=== PATIENT | male | born 1940 | race Caucasian/White ===

== ENCOUNTER 2018-02-27 10:27 | Inpatient (IN) | payer MEDICARE ==
[~2018-02-27] VITALS: Ht 185.4 cm; Wt 124.1 kg
[2018-02-27 16:25] VITALS: BP 151/70
[2018-02-27] MEDS ORDERED: ALLO300T PO (16:56)
[2018-02-27] MEDS ORDERED: METO5TAB4 PO (16:56)
[2018-02-27] MEDS ORDERED: DILT180C2 PO (16:56)
[2018-02-27] MEDS ORDERED: INDO50CA5 PO (16:56)
[2018-02-27] MEDS ORDERED: OMEP20CA9 PO (16:56)
[2018-02-27] MEDS ORDERED: METO-247 PO (16:56)
[2018-02-27] MEDS ORDERED: BUME1TAB PO (16:56)
[2018-02-27] MEDS ORDERED: ACETAMINOPHEN 325 MG TABLET. PO PRN (17:00)
[2018-02-27] MEDS ORDERED: traMADol 50 MG TABLET PO PRN (17:00)
[2018-02-27] MEDS ORDERED: DOCUSATE SODIUM 100 MG CAPSULE. PO PRN (17:00)
[2018-02-27] MEDS ORDERED: ONDANSETRON PF 4 MG/2 ML VIAL. IV PRN (17:00)
[2018-02-27] MEDS ORDERED: MORPHINE SULFATE 2 MG/ML VIAL. IV PRN (17:00)
[2018-02-27 17:34] LABS: BASO % 0 % (0-3); EOS # 0.1 x10^3/uL (0.0-0.7); EOS % 1 % (0-3); HEMATOCRIT 37.8 % (39.0-53.0); HEMOGLOBIN 12.8 g/dL (13.0-17.5); LYMPH # 1.1 x10^3/uL (1.0-4.8); LYMPH % 7 % (24-48); MEAN CORPUSCULAR HEMOGLOBIN 30 pg (25-35); MEAN CORPUSCULAR HGB CONC 34 g/dL (31-37); MEAN CORPUSCULAR VOLUME 89 fL (79-100); MONO # 1.1 x10^3/uL (0.0-1.1); MONO % 7 % (0-9); NEUT # 12.2 x10^3uL (1.8-7.7); NEUT % 84 % (31-73); PLATELET COUNT 183 x10^3/uL (140-400); RED BLOOD COUNT 4.26 x10^6/uL (4.30-5.70); RED CELL DISTRIBUTION WIDTH 14.5 % (11.5-14.5); WHITE BLOOD COUNT 14.5 x10^3/uL (4.0-11.0)
[2018-02-27 17:43] LABS: PROTHROMBIN TIME PATIENT 15.4 SEC (11.7-14.0)
--- NOTE | 2018-02-27 17:43 | PDOC1 ---
History and Physical Date of Admission Date of Admission 02/27/18 Identification/Chief Complaint Chief Complaint abd pain, pancreatitis Source Source: Chart review, Patient History of Present Illness History of Present Illness 77 yo M, with h/o HTN, was transferred from [facility] for acute pancreatitis. pt started to have epigastric abd pain severe since last , with N/V that day, since then low po intake. He went to [facility] on 02/25 for the paiN, WBC 22 , K 2.5, CT showed diffuse pancreatitis. pt got ivf, npo till yesterday with clear liquid , then abd pain got worse. had BM 2 times yesterday. NOw pt has no abd pain after morphine, but still feel abd distended, no N/V. had subjective fever, chills. Lipase is normal. wbc better to 17. got heparin in [facility] causing hives. he admitted has GERD, BUT not takes meds daily, denies NSAIDS, denies heavy drinker. Past Medical History Cardiovascular: HTN Past Surgical History Past Surgical History knee replacement Past Surgical History: Appendectomy, Cholecystectomy Social History Smoke: No ALCOHOL: rare Drugs: None Current Medications Current Medications Current Medications Medications (Trade) Dose Ordered Sig/Qamar Start Time Stop Time Status Last Admin Dose Admin Acetaminophen (Tylenol) 650 mg PRN Q6HRS PRN 02/27/18 17:00 UNV Docusate Sodium (Colace) 100 mg PRN DAILY PRN 02/27/18 17:00 UNV Morphine Sulfate (Morphine Sulfate) 2 mg PRN Q2HR PRN 02/27/18 17:00 UNV Ondansetron HCl (Zofran) 4 mg PRN Q6HRS PRN 02/27/18 17:00 UNV Tramadol HCl (Ultram) 50 mg PRN Q6HRS PRN 02/27/18 17:00 UNV ROS Review of System CONSTITUTIONAL: No fever or chills EYES: No recent changes SKIN: No rash or itching CARDIOVASCULAR: No chest pain, syncope, palpitations, or edema RESPIRATORY: No SOB or cough GASTROINTESTINAL: No nausea, vomiting or abdominal pain NEUROLOGICAL: No headaches or weakness ENDOCRINE: No cold or heat intolerance GENITOURINARY: No urgency or frequency of urination MUSCULOSKELETAL: No back pain or joint pain LYMPHATICS: No enlarged lymph nodes PSYCHIATRIC: No anxiety or depression Physical Exam Physical Exam GEN.: No apparent distress. Alert and oriented. HEENT: Head is normocephalic, atraumatic NECK: Supple. LUNGS: Clear to auscultation. HEART: RRR, S1, S2 present. Peripheral pulses intact ABDOMEN: Soft, hypoactive bowel sounds. severe distended abd, epigastric mild tenderness. EXTREMITIES: Without any cyanosis. NEUROLOGIC: Normal speech, normal tone PSYCHIATRIC: Normal affect, normal mood. SKIN: No ulcerations Vitals Vitals Vital Signs Date Time Temp Pulse Resp B/P (MAP) Pulse Ox O2 Delivery O2 Flow Rate FiO2 02/27/18 16:25 98.8 102 16 151/70 (97) 96 Room Air 98.8 VTE Prophylaxis Ordered VTE Prophylaxis Devices: Yes VTE Pharmacological Prophylaxi: Yes Assessment/Plan Assessment/Plan abd pain with acute pancreatitis htn GERD GOUT hypokalemia, resolved morbid obesity plan: gi consult npo ivf pain control CT abd pelvis labs today CXR dvt try lovenox, benadryl GORDON Bolden MD Feb 27, 2018 17:43
[2018-02-27] MEDS ORDERED: C.DIFF MED SCREEN BY RX. MC ONE (17:45)
[2018-02-27 17:52] LABS: ALBUMIN 2.2 g/dL (3.4-5.0); CALCIUM 8.5 mg/dL (8.5-10.1); CREATININE 1.1 mg/dL (0.7-1.3); DIRECT BILIRUBIN 0.9 mg/dL (0.0-0.2); GFR 64.7; POTASSIUM 3.1 mmol/L (3.5-5.1); TOTAL BILIRUBIN 1.4 mg/dL (0.2-1.0); TOTAL PROTEIN 6.4 g/dL (6.4-8.2)
[2018-02-27] MEDS: ALLOPURINOL 300 MG TABLET. PO SCH (18:12)
[2018-02-27] MEDS: diphenhydrAMINE HCL 25 MG CAPSULE PO PRN (18:12)
[2018-02-27] MEDS: METOPROLOL SUCC 24HR ER 100 MG TAB.ER.24H. PO SCH (18:12)
[2018-02-27] MEDS: POTASSIUM CL 20MEQ D5-0.9%NACL 1,000 ML IV SCH (18:27)
[2018-02-27] MEDS ORDERED: PANTOPRAZOLE IV PUSH 40 MG VIAL. IVP SCH (18:30)
[2018-02-27] MEDS ORDERED: IOHEXOL 240 MG/ML 50ML VIAL. PO ONE (18:45)
[2018-02-27] MEDS ORDERED: IOHEXOL 300 MG/ML 100ML VIAL. IV ONE (18:45)
[2018-02-27 19:00] VITALS: BP 163/64
[2018-02-27] MEDS: ENOXAPARIN 40 MG/0.4 ML SYRINGE. SQ SCH (20:13)
[2018-02-27] MEDS: LACTOBACILLUS RHAMNOSUS GG 1 CAPSULE. PO SCH (20:14)
[2018-02-27] MEDS ORDERED: NON FORMULARY ITEM (Omeprazole 1 CAP) PO SCH (21:00)
[2018-02-27] MEDS ORDERED: POTASSIUM CHLORIDE 20 MEQ TABLET.ER. PO ONE (21:00)
[2018-02-27] MEDS ORDERED: MAGNESIUM SULFATE 2GM 50 ML IV ONE (21:00)
[2018-02-27 23:00] VITALS: BP 147/47
[2018-02-28 02:44] VITALS: BP 145/58
[2018-02-28 04:23] LABS: BASO % 0 % (0-3); EOS # 0.1 x10^3/uL (0.0-0.7); EOS % 1 % (0-3); HEMATOCRIT 36.9 % (39.0-53.0); HEMOGLOBIN 12.3 g/dL (13.0-17.5); LYMPH % 7 % (24-48); MEAN CORPUSCULAR HEMOGLOBIN 30 pg (25-35); MEAN CORPUSCULAR HGB CONC 33 g/dL (31-37); MEAN CORPUSCULAR VOLUME 89 fL (79-100); MONO # 1.2 x10^3/uL (0.0-1.1); MONO % 8 % (0-9); NEUT # 12.3 x10^3uL (1.8-7.7); NEUT % 84 % (31-73); PLATELET COUNT 195 x10^3/uL (140-400); RED BLOOD COUNT 4.14 x10^6/uL (4.30-5.70); RED CELL DISTRIBUTION WIDTH 14.7 % (11.5-14.5); WHITE BLOOD COUNT 14.6 x10^3/uL (4.0-11.0)
[2018-02-28 04:49] LABS: CALCIUM 8.4 mg/dL (8.5-10.1); CREATININE 1.2 mg/dL (0.7-1.3); GFR 58.6; POTASSIUM 4.1 mmol/L (3.5-5.1)
[2018-02-28 05:11] LABS: CHOLESTEROL/HDL RATIO 6.3
[2018-02-28 07:00] VITALS: BP 146/64
--- NOTE | 2018-02-28 07:58 | RAD ---
Portable chest, 02/27/2018: HISTORY: Epigastric pain, hypertension Comparison is made to a study from 11/20/2004. The heart size and pulmonary vascularity are normal. There is mild tortuosity of the thoracic aorta. No pulmonary infiltrate is seen. There is no evidence of pleural fluid. Mild spurring is present in the spine. IMPRESSION: No acute cardiopulmonary abnormality is detected. Electronically signed by: Rosales Craig MD (02/28/2018 7:55 AM) [facility]
--- NOTE | 2018-02-28 08:39 | RAD ---
CT of the abdomen and pelvis with contrast, 02/27/2018: HISTORY: Follow-up pancreatitis, elevated white blood cell count Multidetector CT imaging was performed following oral and IV administration of contrast. Comparison is made to an outside study from 02/25/2018. The pancreas is mildly enlarged. Streaky peripancreatic inflammation is present extending into the mesentery. This has progressed slightly. The pancreas enhances normally without evidence of necrosis. No discrete peripancreatic fluid collection is seen. The gallbladder is surgically absent. No hepatic abnormality is seen. The spleen is of normal size. There are several cysts in the left kidney with the largest of these measuring 3.6 cm. A 1.3 cm medium density cortical nodule arising from the lower pole the right kidney is again identified. It demonstrates an internal CT number of approximately 45 Hounsfield units, similar to that seen on the outside noncontrast study. This is probably a complicated cyst. A solid mass cannot be entirely excluded. Several small intrarenal calculi are present on the left. There is no evidence of renal obstruction. The ureters are unremarkable. There is mild aortoiliac calcific plaquing. No abdominal or pelvic adenopathy is seen. The bowel loops are not dilated. No free air or significant free fluid is evident in the abdomen or pelvis. Moderate multilevel degenerative changes are present in the spine. IMPRESSION: 1. Acute pancreatitis with slight interval worsening of the peripancreatic inflammation. 2. Left renal cysts and nonobstructing intrarenal calculi. 3. Medium density right renal nodule which is probably a complicated cyst. Sonographic evaluation is suggested. PQRS Compliance Statement: One or more of the following individualized dose reduction techniques were utilized for this examination: 1. Automated exposure control 2. Adjustment of the mA and/or kV according to patient size 3. Use of iterative reconstruction technique Electronically signed by: Rosales Craig MD (02/28/2018 8:36 AM) [facility]
[2018-02-28] MEDS: METOPROLOL SUCC 24HR ER 100 MG TAB.ER.24H. PO SCH (08:43)
[2018-02-28] MEDS: LACTOBACILLUS RHAMNOSUS GG 1 CAPSULE. PO SCH ×2 (08:44→21:29)
[2018-02-28] MEDS: fentaNYL PF VIAL 100 MCG/2 ML VIAL IV PRN ×3 (08:45→22:58)
[2018-02-28] MEDS: PANTOPRAZOLE IV PUSH 40 MG VIAL. IVP SCH (08:46)
[2018-02-28] MEDS: POTASSIUM CL 20MEQ D5-0.9%NACL 1,000 ML IV SCH ×3 (09:04→21:24)
--- NOTE | 2018-02-28 09:06 | PDOC2 ---
GI CONSULT Reason For Consult: acute pancreatitis HPI: HPI: 77 y/o male sent to [facility] from [facility] yesterday. Awoke at 1:00 a.m. last () w/ n/v and abd distention, then later developed LUQ pain. Pain/bloating caused some SOA a few times. No recurrent n/v and distention is better. Has had continued abd pain, but he say it's better this morning. Last took pain meds en route to [facility], and also felt better after stooling this morning - he says stool was "black like jam." Tolerating sips of water w/o increased pain. No h/o pancreatitis. S/p cholecystectomy - he says for sepsis/pseudomonas. Consumes a 12 pack of beer every 2-4 weeks. Afebrile, mild tachycardia last evening (none this morning). Leukocytosis and hypokalemia are better. Lipase and LFTs are normal except bili 1.4 (direct 0.9) . Hgb is 12.3 (12.8 yesterday) w/ normal BUN. Lipids and Ca++ okay. On interval CT (yesterday): progressive peripancreatic inflammation w/o necrosis or fluid collection. Also noted left renal cysts w/ nonobstructing intrarenal calculi and right renal nodule. On IV atbx. H/o GERD/heartburn - takes omeprazole after eating dinner one monthly or less. No dysphagia. Typically no issues w/ diarrhea or constipation. Denies hematochezia. No weight loss. EGD (for GERD) in 12/2011: Grade 1 esophagitis, gastritis, normal duodenum Tandem colonoscopy (for h/o colon polyps): Grade 1 internal hemorrhoids, otherwise normal. No liver history. H/o gout on indomethacin QD. PMH: PMH: HTN, GERD, gout, OA, hemorrhoids, cholecystectomy, appendectomy, vasectomy, cataract removal, sinus surgery, bilateral knee replacements FH: Family History: No pertinent hx (denies GI cancers, pancreatits) Social History: Smoke: Quit ALCOHOL: occassional (12 pack of beer every 2-4 weeks) Drugs: None ROS: GEN: +chills HEENT: Denies blurred vision, sore throat CV: Denies chest pain RESP: +SOA GI: Per HPI : Denies hematuria, dysuria ENDO: Denies weight changes NEURO: Denies confusion, dizziness MSK: +gout SKIN: Denies jaundice, pruritus Vitals: Vitals: Vital Signs Date Time Temp Pulse Resp B/P (MAP) Pulse Ox O2 Delivery O2 Flow Rate FiO2 02/28/18 08:43 75 146/64 02/28/18 07:00 98.1 18 97 Room Air 98.1 Labs: Labs: Laboratory Tests Test 02/27/18 17:20 02/27/18 17:30 02/28/18 03:15 White Blood Count 14.5 x10^3/uL (4.0-11.0) 14.6 x10^3/uL (4.0-11.0) Red Blood Count 4.26 x10^6/uL (4.30-5.70) 4.14 x10^6/uL (4.30-5.70) Hemoglobin 12.8 g/dL (13.0-17.5) 12.3 g/dL (13.0-17.5) Hematocrit 37.8 % (39.0-53.0) 36.9 % (39.0-53.0) Mean Corpuscular Volume 89 fL (79-100) 89 fL (79-100) Mean Corpuscular Hemoglobin 30 pg (25-35) 30 pg (25-35) Mean Corpuscular Hemoglobin Concent 34 g/dL (31-37) 33 g/dL (31-37) Red Cell Distribution Width 14.5 % (11.5-14.5) 14.7 % (11.5-14.5) Platelet Count 183 x10^3/uL (140-400) 195 x10^3/uL (140-400) Neutrophils (%) (Auto) 84 % (31-73) 84 % (31-73) Lymphocytes (%) (Auto) 7 % (24-48) 7 % (24-48) Monocytes (%) (Auto) 7 % (0-9) 8 % (0-9) Eosinophils (%) (Auto) 1 % (0-3) 1 % (0-3) Basophils (%) (Auto) 0 % (0-3) 0 % (0-3) Neutrophils # (Auto) 12.2 x10^3uL (1.8-7.7) 12.3 x10^3uL (1.8-7.7) Lymphocytes # (Auto) 1.1 x10^3/uL (1.0-4.8) 1.0 x10^3/uL (1.0-4.8) Monocytes # (Auto) 1.1 x10^3/uL (0.0-1.1) 1.2 x10^3/uL (0.0-1.1) Eosinophils # (Auto) 0.1 x10^3/uL (0.0-0.7) 0.1 x10^3/uL (0.0-0.7) Basophils # (Auto) 0.0 x10^3/uL (0.0-0.2) 0.0 x10^3/uL (0.0-0.2) Prothrombin Time 15.4 SEC (11.7-14.0) Prothromb Time International Ratio 1.3 (0.8-1.1) Sodium Level 130 mmol/L (136-145) 130 mmol/L (136-145) Potassium Level 3.1 mmol/L (3.5-5.1) 4.1 mmol/L (3.5-5.1) Chloride Level 98 mmol/L (98-107) 100 mmol/L (98-107) Carbon Dioxide Level 26 mmol/L (21-32) 23 mmol/L (21-32) Anion Gap 6 (6-14) 7 (6-14) Blood Urea Nitrogen 16 mg/dL (8-26) 17 mg/dL (8-26) Creatinine 1.1 mg/dL (0.7-1.3) 1.2 mg/dL (0.7-1.3) Estimated GFR (Cockcroft-Gault) 64.7 58.6 Glucose Level 86 mg/dL (70-99) 239 mg/dL (70-99) Calcium Level 8.5 mg/dL (8.5-10.1) 8.4 mg/dL (8.5-10.1) Total Bilirubin 1.4 mg/dL (0.2-1.0) Direct Bilirubin 0.9 mg/dL (0.0-0.2) Aspartate Amino Transf (AST/SGOT) 25 U/L (15-37) Alanine Aminotransferase (ALT/SGPT) 29 U/L (16-63) Alkaline Phosphatase 99 U/L (46-116) Total Protein 6.4 g/dL (6.4-8.2) Albumin 2.2 g/dL (3.4-5.0) Lipase 150 U/L (73-393) 169 U/L (73-393) Magnesium Level 1.4 mg/dL (1.8-2.4) Triglycerides Level 64 mg/dL (0-150) Cholesterol Level 88 mg/dL (0-200) LDL Cholesterol, Calculated 61 mg/dL (0-100) VLDL Cholesterol, Calculated 13 mg/dL (0-40) Non-HDL Cholesterol Calculated 74 mg/dL (0-129) HDL Cholesterol 14 mg/dL (40-60) Cholesterol/HDL Ratio 6.3 Allergies: Coded Allergies: amoxicillin (Verified Allergy, Unknown, 02/27/18) heparin (Verified Allergy, Unknown, 02/27/18) HIVES lisinopril (Verified Allergy, Unknown, 02/27/18) piperacillin (Verified Allergy, Unknown, 02/27/18) tazobactam (Verified Allergy, Unknown, 02/27/18) Medications: Current Medications Medications (Trade) Dose Ordered Sig/Qamar Route PRN Reason Start Time Stop Time Status Last Admin Dose Admin Allopurinol (Zyloprim) 300 mg DAILY PO 02/27/18 18:30 02/27/18 18:12 Metoprolol Succinate (Toprol Xl) 100 mg DAILY PO 02/27/18 18:30 02/28/18 08:43 Diltiazem HCl (Cardizem 24hr Cd) 180 mg DAILY PO 02/27/18 18:30 02/28/18 08:42 Potassium Chloride/Dextrose/ Sod Cl 1,000 ml @ 100 mls/hr Q10H IV 02/27/18 18:00 02/28/18 09:04 Metronidazole 100 ml @ 100 mls/hr Q12HR IV 02/27/18 21:00 02/28/18 08:45 Fentanyl Citrate (Fentanyl 2ml Vial) 50 mcg PRN Q2HR PRN IV PAIN MODERATE 02/27/18 17:30 02/28/18 08:45 Enoxaparin Sodium (Lovenox 40mg Syringe) 40 mg QHS SQ 8/22/18 21:00 02/27/18 20:13 Diphenhydramine HCl (Benadryl) 25 mg PRN Q6HRS PRN PO ITCHING 02/27/18 17:45 02/27/18 18:12 Pantoprazole Sodium (PROTONIX VIAL for IV PUSH) 40 mg DAILYAC IVP 02/28/18 07:30 02/28/18 08:46 Lactobacillus Rhamnosus (Culturelle) 1 cap BID PO 02/27/18 21:00 02/28/18 08:44 Iohexol (Omnipaque 300 Mg/ml) 75 ml 1X ONCE IV 02/27/18 18:45 02/27/18 18:54 DC 02/27/18 18:45 Iohexol (Omnipaque 240 Mg/ml) 30 ml 1X ONCE PO 02/27/18 18:45 02/27/18 18:54 DC 02/27/18 18:45 Potassium Chloride (Klor-Con) 40 meq 1X ONCE PO 02/27/18 21:00 02/27/18 21:01 DC 02/27/18 21:09 Magnesium Sulfate 50 ml @ 25 mls/hr 1X ONCE IV 02/27/18 21:00 02/27/18 22:59 DC 02/27/18 21:14 Imaging: Imaging: CXR 02/27/18 IMPRESSION: No acute cardiopulmonary abnormality is detected. CT A/P 02/27/18 The pancreas is mildly enlarged. Streaky peripancreatic inflammation is present extending into the mesentery. This has progressed slightly. The pancreas enhances normally without evidence of necrosis. No discrete peripancreatic fluid collection is seen. The gallbladder is surgically absent. No hepatic abnormality is seen. The spleen is of normal size. There are several cysts in the left kidney with the largest of these measuring 3.6 cm. A 1.3 cm medium density cortical nodule arising from the lower pole the right kidney is again identified. It demonstrates an internal CT number of approximately 45 Hounsfield units, similar to that seen on the outside noncontrast study. This is probably a complicated cyst. A solid mass cannot be entirely excluded. Several small intrarenal calculi are present on the left. There is no evidence of renal obstruction. The ureters are unremarkable. There is mild aortoiliac calcific plaquing. No abdominal or pelvic adenopathy is seen. The bowel loops are not dilated. No free air or significant free fluid is evident in the abdomen or pelvis. Moderate multilevel degenerative changes are present in the spine. IMPRESSION: 1. Acute pancreatitis with slight interval worsening of the peripancreatic inflammation. 2. Left renal cysts and nonobstructing intrarenal calculi. 3. Medium density right renal nodule which is probably a complicated cyst. Sonographic evaluation is suggested. PE: GEN: NAD HEENT: Atraumatic, PERRL LUNGS: CTAB HEART: RRR ABD: quiet, soft with perhaps mild distention, he points to LUQ region which is currently not tender EXTREMITY: No edema SKIN: No rashes, no jaundice NEURO/PSYCH: A & O 3 OTHER: soft dark brown stool in toilet A/P: A/P: Pancreatitis -interval CT w/ progressive peripancreatic inflammation -distention/pain, n/v better -WBC better GERD -seems undertreated w/ PPI PRN every month or so + daily NSAID for gout -EGD in 2012 w/ Grade 1 esophagitis and gastritis CRC screen - UTD -normal except hemorrhoids in 2012 -- Pancreatitis - unclear etiology. He thinks he's better this morning. Tolerating sips of water - may need PPN/TPN if still slow to improve. Agree w/ PPI - change to PO when able. Other per Dr. Guillen. JAIDA BUTCHER Feb 28, 2018 09:06
[2018-02-28 11:00] VITALS: BP 151/63
--- NOTE | 2018-02-28 11:03 | PDOC ---
PROGRESS NOTES Chief Complaint Chief Complaint 77 yo M, with h/o HTN, was transferred from [facility] for acute pancreatitis. pt started to have epigastric abd pain severe since last , with N/V that day, History of Present Illness History of Present Illness Assessment/Plan Assessment/Plan abd pain with acute pancreatitis Acute pancreatitis with slight interval worsening of the peripancreatic inflammation. htn GERD GOUT hypokalemia, resolved morbid obesity HYPERGLYCEMIA plan: A1C ACCUCHECKS gi consult npo ivf pain control CT abd pelvis REVIEWED labs IN AM CXR NO ACUTE PROCESS dvt PROPHY lovenox, benadryl prn Vitals Vitals Vital Signs Date Time Temp Pulse Resp B/P (MAP) Pulse Ox O2 Delivery O2 Flow Rate FiO2 02/28/18 08:43 75 146/64 02/28/18 08:00 Room Air 02/28/18 07:00 98.1 18 97 98.1 Physical Exam Physical Exam Physical Exam Physical Exam GEN.: MILD apparent distress. Alert and oriented. HEENT: Head is normocephalic, atraumatic NECK: Supple. LUNGS: Clear to auscultation. HEART: RRR, S1, S2 present. Peripheral pulses intact ABDOMEN: Soft, hypoactive bowel sounds. distended abd, epigastric mild tenderness. EXTREMITIES: Without any cyanosis. NEUROLOGIC: Normal speech, normal tone PSYCHIATRIC: Normal affect, normal mood. SKIN: No ulcerations General: Alert, Oriented X3, Cooperative, mild distress Heart: Regular rate, No murmurs Lungs: Clear Extremities: No clubbing, No cyanosis, No edema Labs LABS REASON: previous ct showed pancreatitis, lipase normal, still high wbc PROCEDURE: CT ABD PELV W/ORAL&IV CONTRAST CT of the abdomen and pelvis with contrast, 02/27/2018: HISTORY: Follow-up pancreatitis, elevated white blood cell count Multidetector CT imaging was performed following oral and IV administration of contrast. Comparison is made to an outside study from 02/25/2018. The pancreas is mildly enlarged. Streaky peripancreatic inflammation is present extending into the mesentery. This has progressed slightly. The pancreas enhances normally without evidence of necrosis. No discrete peripancreatic fluid collection is seen. The gallbladder is surgically absent. No hepatic abnormality is seen. The spleen is of normal size. There are several cysts in the left kidney with the largest of these measuring 3.6 cm. A 1.3 cm medium density cortical nodule arising from the lower pole the right kidney is again identified. It demonstrates an internal CT number of approximately 45 Hounsfield units, similar to that seen on the outside noncontrast study. This is probably a complicated cyst. A solid mass cannot be entirely excluded. Several small intrarenal calculi are present on the left. There is no evidence of renal obstruction. The ureters are unremarkable. There is mild aortoiliac calcific plaquing. No abdominal or pelvic adenopathy is seen. The bowel loops are not dilated. No free air or significant free fluid is evident in the abdomen or pelvis. Moderate multilevel degenerative changes are present in the spine. 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 50-69% stenosis of the right ICA. 2. Left renal cysts and nonobstructing intrarenal calculi. 3. Medium density right renal nodule which is probably a complicated cyst. Sonographic evaluation is suggested. Laboratory Tests Test 02/27/18 17:20 02/27/18 17:30 02/28/18 03:15 White Blood Count 14.5 x10^3/uL (4.0-11.0) 14.6 x10^3/uL (4.0-11.0) Red Blood Count 4.26 x10^6/uL (4.30-5.70) 4.14 x10^6/uL (4.30-5.70) Hemoglobin 12.8 g/dL (13.0-17.5) 12.3 g/dL (13.0-17.5) Hematocrit 37.8 % (39.0-53.0) 36.9 % (39.0-53.0) Mean Corpuscular Volume 89 fL (79-100) 89 fL (79-100) Mean Corpuscular Hemoglobin 30 pg (25-35) 30 pg (25-35) Mean Corpuscular Hemoglobin Concent 34 g/dL (31-37) 33 g/dL (31-37) Red Cell Distribution Width 14.5 % (11.5-14.5) 14.7 % (11.5-14.5) Platelet Count 183 x10^3/uL (140-400) 195 x10^3/uL (140-400) Neutrophils (%) (Auto) 84 % (31-73) 84 % (31-73) Lymphocytes (%) (Auto) 7 % (24-48) 7 % (24-48) Monocytes (%) (Auto) 7 % (0-9) 8 % (0-9) Eosinophils (%) (Auto) 1 % (0-3) 1 % (0-3) Basophils (%) (Auto) 0 % (0-3) 0 % (0-3) Neutrophils # (Auto) 12.2 x10^3uL (1.8-7.7) 12.3 x10^3uL (1.8-7.7) Lymphocytes # (Auto) 1.1 x10^3/uL (1.0-4.8) 1.0 x10^3/uL (1.0-4.8) Monocytes # (Auto) 1.1 x10^3/uL (0.0-1.1) 1.2 x10^3/uL (0.0-1.1) Eosinophils # (Auto) 0.1 x10^3/uL (0.0-0.7) 0.1 x10^3/uL (0.0-0.7) Basophils # (Auto) 0.0 x10^3/uL (0.0-0.2) 0.0 x10^3/uL (0.0-0.2) Prothrombin Time 15.4 SEC (11.7-14.0) Prothromb Time International Ratio 1.3 (0.8-1.1) Sodium Level 130 mmol/L (136-145) 130 mmol/L (136-145) Potassium Level 3.1 mmol/L (3.5-5.1) 4.1 mmol/L (3.5-5.1) Chloride Level 98 mmol/L (98-107) 100 mmol/L (98-107) Carbon Dioxide Level 26 mmol/L (21-32) 23 mmol/L (21-32) Anion Gap 6 (6-14) 7 (6-14) Blood Urea Nitrogen 16 mg/dL (8-26) 17 mg/dL (8-26) Creatinine 1.1 mg/dL (0.7-1.3) 1.2 mg/dL (0.7-1.3) Estimated GFR (Cockcroft-Gault) 64.7 58.6 Glucose Level 86 mg/dL (70-99) 239 mg/dL (70-99) Calcium Level 8.5 mg/dL (8.5-10.1) 8.4 mg/dL (8.5-10.1) Total Bilirubin 1.4 mg/dL (0.2-1.0) Direct Bilirubin 0.9 mg/dL (0.0-0.2) Aspartate Amino Transf (AST/SGOT) 25 U/L (15-37) Alanine Aminotransferase (ALT/SGPT) 29 U/L (16-63) Alkaline Phosphatase 99 U/L (46-116) Total Protein 6.4 g/dL (6.4-8.2) Albumin 2.2 g/dL (3.4-5.0) Lipase 150 U/L (73-393) 169 U/L (73-393) Magnesium Level 1.4 mg/dL (1.8-2.4) Triglycerides Level 64 mg/dL (0-150) Cholesterol Level 88 mg/dL (0-200) LDL Cholesterol, Calculated 61 mg/dL (0-100) VLDL Cholesterol, Calculated 13 mg/dL (0-40) Non-HDL Cholesterol Calculated 74 mg/dL (0-129) HDL Cholesterol 14 mg/dL (40-60) Cholesterol/HDL Ratio 6.3 Comment Review of Relevant I have reviewed the following items dc (where applicable) has been applied. Labs Laboratory Tests Test 02/27/18 17:20 02/27/18 17:30 02/28/18 03:15 White Blood Count 14.5 x10^3/uL (4.0-11.0) 14.6 x10^3/uL (4.0-11.0) Red Blood Count 4.26 x10^6/uL (4.30-5.70) 4.14 x10^6/uL (4.30-5.70) Hemoglobin 12.8 g/dL (13.0-17.5) 12.3 g/dL (13.0-17.5) Hematocrit 37.8 % (39.0-53.0) 36.9 % (39.0-53.0) Mean Corpuscular Volume 89 fL (79-100) 89 fL (79-100) Mean Corpuscular Hemoglobin 30 pg (25-35) 30 pg (25-35) Mean Corpuscular Hemoglobin Concent 34 g/dL (31-37) 33 g/dL (31-37) Red Cell Distribution Width 14.5 % (11.5-14.5) 14.7 % (11.5-14.5) Platelet Count 183 x10^3/uL (140-400) 195 x10^3/uL (140-400) Neutrophils (%) (Auto) 84 % (31-73) 84 % (31-73) Lymphocytes (%) (Auto) 7 % (24-48) 7 % (24-48) Monocytes (%) (Auto) 7 % (0-9) 8 % (0-9) Eosinophils (%) (Auto) 1 % (0-3) 1 % (0-3) Basophils (%) (Auto) 0 % (0-3) 0 % (0-3) Neutrophils # (Auto) 12.2 x10^3uL (1.8-7.7) 12.3 x10^3uL (1.8-7.7) Lymphocytes # (Auto) 1.1 x10^3/uL (1.0-4.8) 1.0 x10^3/uL (1.0-4.8) Monocytes # (Auto) 1.1 x10^3/uL (0.0-1.1) 1.2 x10^3/uL (0.0-1.1) Eosinophils # (Auto) 0.1 x10^3/uL (0.0-0.7) 0.1 x10^3/uL (0.0-0.7) Basophils # (Auto) 0.0 x10^3/uL (0.0-0.2) 0.0 x10^3/uL (0.0-0.2) Prothrombin Time 15.4 SEC (11.7-14.0) Prothromb Time International Ratio 1.3 (0.8-1.1) Sodium Level 130 mmol/L (136-145) 130 mmol/L (136-145) Potassium Level 3.1 mmol/L (3.5-5.1) 4.1 mmol/L (3.5-5.1) Chloride Level 98 mmol/L (98-107) 100 mmol/L (98-107) Carbon Dioxide Level 26 mmol/L (21-32) 23 mmol/L (21-32) Anion Gap 6 (6-14) 7 (6-14) Blood Urea Nitrogen 16 mg/dL (8-26) 17 mg/dL (8-26) Creatinine 1.1 mg/dL (0.7-1.3) 1.2 mg/dL (0.7-1.3) Estimated GFR (Cockcroft-Gault) 64.7 58.6 Glucose Level 86 mg/dL (70-99) 239 mg/dL (70-99) Calcium Level 8.5 mg/dL (8.5-10.1) 8.4 mg/dL (8.5-10.1) Total Bilirubin 1.4 mg/dL (0.2-1.0) Direct Bilirubin 0.9 mg/dL (0.0-0.2) Aspartate Amino Transf (AST/SGOT) 25 U/L (15-37) Alanine Aminotransferase (ALT/SGPT) 29 U/L (16-63) Alkaline Phosphatase 99 U/L (46-116) Total Protein 6.4 g/dL (6.4-8.2) Albumin 2.2 g/dL (3.4-5.0) Lipase 150 U/L (73-393) 169 U/L (73-393) Magnesium Level 1.4 mg/dL (1.8-2.4) Triglycerides Level 64 mg/dL (0-150) Cholesterol Level 88 mg/dL (0-200) LDL Cholesterol, Calculated 61 mg/dL (0-100) VLDL Cholesterol, Calculated 13 mg/dL (0-40) Non-HDL Cholesterol Calculated 74 mg/dL (0-129) HDL Cholesterol 14 mg/dL (40-60) Cholesterol/HDL Ratio 6.3 Laboratory Tests Test 02/27/18 17:20 02/27/18 17:30 02/28/18 03:15 White Blood Count 14.5 x10^3/uL (4.0-11.0) 14.6 x10^3/uL (4.0-11.0) Red Blood Count 4.26 x10^6/uL (4.30-5.70) 4.14 x10^6/uL (4.30-5.70) Hemoglobin 12.8 g/dL (13.0-17.5) 12.3 g/dL (13.0-17.5) Hematocrit 37.8 % (39.0-53.0) 36.9 % (39.0-53.0) Mean Corpuscular Volume 89 fL (79-100) 89 fL (79-100) Mean Corpuscular Hemoglobin 30 pg (25-35) 30 pg (25-35) Mean Corpuscular Hemoglobin Concent 34 g/dL (31-37) 33 g/dL (31-37) Red Cell Distribution Width 14.5 % (11.5-14.5) 14.7 % (11.5-14.5) Platelet Count 183 x10^3/uL (140-400) 195 x10^3/uL (140-400) Neutrophils (%) (Auto) 84 % (31-73) 84 % (31-73) Lymphocytes (%) (Auto) 7 % (24-48) 7 % (24-48) Monocytes (%) (Auto) 7 % (0-9) 8 % (0-9) Eosinophils (%) (Auto) 1 % (0-3) 1 % (0-3) Basophils (%) (Auto) 0 % (0-3) 0 % (0-3) Neutrophils # (Auto) 12.2 x10^3uL (1.8-7.7) 12.3 x10^3uL (1.8-7.7) Lymphocytes # (Auto) 1.1 x10^3/uL (1.0-4.8) 1.0 x10^3/uL (1.0-4.8) Monocytes # (Auto) 1.1 x10^3/uL (0.0-1.1) 1.2 x10^3/uL (0.0-1.1) Eosinophils # (Auto) 0.1 x10^3/uL (0.0-0.7) 0.1 x10^3/uL (0.0-0.7) Basophils # (Auto) 0.0 x10^3/uL (0.0-0.2) 0.0 x10^3/uL (0.0-0.2) Prothrombin Time 15.4 SEC (11.7-14.0) Prothromb Time International Ratio 1.3 (0.8-1.1) Sodium Level 130 mmol/L (136-145) 130 mmol/L (136-145) Potassium Level 3.1 mmol/L (3.5-5.1) 4.1 mmol/L (3.5-5.1) Chloride Level 98 mmol/L (98-107) 100 mmol/L (98-107) Carbon Dioxide Level 26 mmol/L (21-32) 23 mmol/L (21-32) Anion Gap 6 (6-14) 7 (6-14) Blood Urea Nitrogen 16 mg/dL (8-26) 17 mg/dL (8-26) Creatinine 1.1 mg/dL (0.7-1.3) 1.2 mg/dL (0.7-1.3) Estimated GFR (Cockcroft-Gault) 64.7 58.6 Glucose Level 86 mg/dL (70-99) 239 mg/dL (70-99) Calcium Level 8.5 mg/dL (8.5-10.1) 8.4 mg/dL (8.5-10.1) Total Bilirubin 1.4 mg/dL (0.2-1.0) Direct Bilirubin 0.9 mg/dL (0.0-0.2) Aspartate Amino Transf (AST/SGOT) 25 U/L (15-37) Alanine Aminotransferase (ALT/SGPT) 29 U/L (16-63) Alkaline Phosphatase 99 U/L (46-116) Total Protein 6.4 g/dL (6.4-8.2) Albumin 2.2 g/dL (3.4-5.0) Lipase 150 U/L (73-393) 169 U/L (73-393) Magnesium Level 1.4 mg/dL (1.8-2.4) Triglycerides Level 64 mg/dL (0-150) Cholesterol Level 88 mg/dL (0-200) LDL Cholesterol, Calculated 61 mg/dL (0-100) VLDL Cholesterol, Calculated 13 mg/dL (0-40) Non-HDL Cholesterol Calculated 74 mg/dL (0-129) HDL Cholesterol 14 mg/dL (40-60) Cholesterol/HDL Ratio 6.3 Medications Current Medications Acetaminophen (Tylenol) 650 mg PRN Q6HRS PRN PO FEVER/HEADACHE; Start 02/27/18 at 17:00 Ondansetron HCl (Zofran) 4 mg PRN Q6HRS PRN IV NAUSEA/VOMITING 1ST CHOICE; Start 02/27/18 at 17:00 Morphine Sulfate (Morphine Sulfate) 2 mg PRN Q2HR PRN IV MODERATE TO SEVERE PAIN; Start 02/27/18 at 17:00 Tramadol HCl (Ultram) 50 mg PRN Q6HRS PRN PO MILD TO MODERATE PAIN; Start 02/27 at 17:00 Docusate Sodium (Colace) 100 mg PRN DAILY PRN PO CONSTIPATION; Start 02/27/18 at 17:00 Allopurinol (Zyloprim) 300 mg DAILY PO Last administered on 02/27/18 18:12; Start 02/27/18 at 18:30 Metoprolol Succinate (Toprol Xl) 100 mg DAILY PO Last administered on 08:43; Start 02/27/18 at 18:30 Diltiazem HCl (Cardizem 24hr Cd) 180 mg DAILY PO Last administered on 08:42; Start 02/27/18 at 18:30 Non-Formulary Medication (Omeprazole ) 1 cap BID PO ; Start 02/27/18 at 21:00; Status UNV Potassium Chloride/Dextrose/ Sod Cl 1,000 ml @ 100 mls/hr Q10H IV Last administered on 02/28/18at 09:04; Start 02/27/18 at 18:00 Levofloxacin/ Dextrose 100 ml @ 100 mls/hr Q24H IV ; Start 02/28/18 at 11:00 Metronidazole 100 ml @ 100 mls/hr Q12HR IV Last administered on 02/28/18at 08: 45; Start 02/27/18 at 21:00 Fentanyl Citrate (Fentanyl 2ml Vial) 50 mcg PRN Q2HR PRN IV PAIN MODERATE Last administered on 02/28/18 08:45; Start 02/27/18 at 17:30 Pantoprazole Sodium (PROTONIX VIAL for IV PUSH) 40 mg DAILYAC IVP ; Start at 18:30; Stop 02/27/18 at 18:30; Status DC Enoxaparin Sodium (Lovenox 40mg Syringe) 40 mg QHS SQ Last administered on 02/27at 20:13; Start 02/27/18 at 21:00 Diphenhydramine HCl (Benadryl) 25 mg PRN Q6HRS PRN PO ITCHING Last administered on 02/27/18at 18:12; Start 02/27/18 at 17:45 Pharmacy Consult (C.diff Med Screen By Rx) 1 each 1X ONCE [facility] ; Start 02/27/18 at 17:45; Stop 02/27/18 at 17:51; Status DC Pantoprazole Sodium (PROTONIX VIAL for IV PUSH) 40 mg DAILYAC IVP Last administered on 02/28/18at 08:46; Start 02/28/18 at 07:30 Lactobacillus Rhamnosus (Culturelle) 1 cap BID PO Last administered on at 08:44; Start 02/27/18 at 21:00 Iohexol (Omnipaque 300 Mg/ml) 75 ml 1X ONCE IV Last administered on 02/27/18at 18:45; Start 02/27/18 at 18:45; Stop 02/27/18 at 18:54; Status DC Iohexol (Omnipaque 240 Mg/ml) 30 ml 1X ONCE PO Last administered on 02/27/18at 18:45; Start 02/27/18 at 18:45; Stop 02/27/18 at 18:54; Status DC Potassium Chloride (Klor-Con) 40 meq 1X ONCE PO Last administered on at 21:09; Start 02/27/18 at 21:00; Stop 02/27/18 at 21:01; Status DC Magnesium Sulfate 50 ml @ 25 mls/hr 1X ONCE IV Last administered on 02/27/18at 21:14; Start 02/27/18 at 21:00; Stop 02/27/18 at 22:59; Status DC Active Scripts Active Reported Omeprazole 20 Mg Capsule.dr 1 Cap PO BID Metoprolol Succinate ( Xl ) (Metoprolol Succinate) 100 Mg Tab.er.24h 1 Tab PO DAILY Metolazone 5 Mg Tablet 5 Mg PO DAILY Indomethacin 50 Mg Capsule 1 Cap PO BID Cardizem Cd (Diltiazem Hcl) 180 Mg Cap.er.24h 1 Cap PO DAILY Bumetanide 1 Mg Tablet 1 Tab PO DAILY Allopurinol 300 Mg Tablet 1 Tab PO DAILY Vitals/I & O Vital Sign - Last 24 Hours 02/27/18 02/27/18 02/27/18 8/22/18 16:25 16:50 18:12 18:12 Temp 98.8 98.8 Pulse 102 102 102 Resp 16 B/P (MAP) 151/70 (97) 151/70 151/70 Pulse Ox 96 O2 Delivery Room Air Room Air 02/27/18 02/27/18 02/27/18 02/28/18 19:00 20:00 23:00 02:44 Temp 97.5 97.9 98.1 97.5 97.9 98.1 Pulse 102 87 74 Resp 18 18 18 B/P (MAP) 163/64 (97) 147/47 (80) 145/58 (87) Pulse Ox 97 95 96 O2 Delivery Room Air Room Air Room Air Room Air 02/28/18 02/28/18 02/28/18 02/28/18 07:00 08:00 08:42 08:43 Temp 98.1 98.1 Pulse 75 75 75 Resp 18 B/P (MAP) 146/64 (91) 146/64 146/64 Pulse Ox 97 O2 Delivery Room Air Room Air Intake and Output 02/27/18 02/27/18 02/28/18 15:00 23:00 07:00 Intake Total 200 ml 300 ml Balance 200 ml 300 ml MAGDALENA GUPTA MD Feb 28, 2018 11:03
[2018-02-28] MEDS: diphenhydrAMINE HCL 25 MG CAPSULE PO PRN ×2 (11:55→18:21)
[2018-02-28] MEDS: ALLOPURINOL 300 MG TABLET. PO SCH (13:30)
[2018-02-28 15:00] VITALS: BP 139/57
[2018-02-28 19:00] VITALS: BP 145/52
[2018-02-28] MEDS: ENOXAPARIN 40 MG/0.4 ML SYRINGE. SQ SCH (21:30)
[2018-02-28] MEDS: SIMETHICONE 80 MG TAB.CHEW PO PRN (21:45)
[2018-02-28 23:00] VITALS: BP 126/56
[2018-03-01 03:00] VITALS: BP 138/56
[2018-03-01 05:18] LABS: HEMOGLOBIN A1C 6.1 % (4.8-5.6)
[2018-03-01 07:00] VITALS: BP 155/66
[2018-03-01] MEDS ORDERED: oxyCODONE/APAP 5/325 1 TAB TABLET PO PRN (08:45)
[2018-03-01] MEDS: LACTOBACILLUS RHAMNOSUS GG 1 CAPSULE. PO SCH ×2 (08:53→21:16)
[2018-03-01] MEDS: METOPROLOL SUCC 24HR ER 100 MG TAB.ER.24H. PO SCH (08:53)
[2018-03-01] MEDS: PANTOPRAZOLE IV PUSH 40 MG VIAL. IVP SCH (08:55)
[2018-03-01] MEDS ORDERED: INDOMETHACIN PO SCH (09:00)
--- NOTE | 2018-03-01 09:13 | PDOC2 ---
CONCEPCIÓN ASHLEY APRN 03/01/18 0913: UROLOGY CONSULT Date of Consult Date of Consult DATE: 03/01/18 TIME: 09:08 Reason for Consult Reason for Consult: Renal nodule, appears to be complicated cyst. Identification/Chief Complaint Chief Complaint Renal nodule, appears to be complicated cyst. Source Source: Caregiver, Chart review, Patient History of Present Illness Reason for Visit: Pt is a 77 year old male who went to to [facility] on 02/25 for the abd pain, nausea and vomiting and was transferred here with acute pancreatitis. Today he is feeling much better with no flank or abd pain. Also denies nausea and vomiting , hematuria, LUTS symptoms or history of enlarged prostate, prostate cancer or bladder problems. He admits to getting yearly prostate exams and bloodwork done by his PCP, Dr. Pepe, but cannot remember what the most recent PSA number was. He denies history of kidney problems, cancer or stones. He had an Ultrasound at [place] a few days ago, but is not sure if it was of his kidneys. Past Medical History Cardiovascular: HTN Renal/: No pertinent hx Past Surgical History Past Surgical History: Appendectomy, Cholecystectomy Social History Quit ALCOHOL: occassional (12 pack of beer every 2-4 weeks) Drugs: None Current Medications Current Medications Current Medications Bumetanide (Bumex) 1 mg DAILY PO ; Start 03/01/18 at 09:30 Levofloxacin/ Dextrose 100 ml @ 100 mls/hr Q24H IV Last administered on at 11:56; Start 02/28/18 at 11:00 Metolazone (Zaroxolyn) 5 mg DAILY PO ; Start 03/01/18 at 09:30 Non-Formulary Medication (Indomethacin ) 1 cap BID PO ; Start 03/01/18 at 09:00 ; Stop 03/01/18 at 09:00; Status DC Oxycodone/ Acetaminophen (Percocet 5/325) 1 tab PRN Q4HRS PRN PO SEVERE PAIN; Start 03/01/18 at 08:45 Simethicone (Gas-X) 80 mg PRN Q6HRS PRN PO GAS / BLOATING Last administered on 02/28/18at 21:45; Start 02/28/18 at 21:45 Allergies Allergies: Coded Allergies: amoxicillin (Verified Allergy, Intermediate, 03/01/18) heparin (Verified Allergy, Intermediate, 03/01/18) HIVES lisinopril (Verified Allergy, Intermediate, 03/01/18) piperacillin (Verified Allergy, Intermediate, 03/01/18) tazobactam (Verified Allergy, Intermediate, 03/01/18) ROS Review Of Systems: CONSTITUTIONAL: No fever or chills EYES: No recent changes SKIN: No rash or itching CARDIOVASCULAR: No chest pain, syncope, palpitations, or edema RESPIRATORY: No SOB or cough GASTROINTESTINAL: No nausea, vomiting or abdominal pain NEUROLOGICAL: No headaches or weakness ENDOCRINE: No cold or heat intolerance GENITOURINARY: No urgency or frequency of urination MUSCULOSKELETAL: No back pain or joint pain LYMPHATICS: No enlarged lymph nodes PSYCHIATRIC: No anxiety or depression Physical Exam Physical Exam: General: Pleasant, no acute distress, well groomed Eyes: conjunctiva anicteric, eyes full range of motion ENT: moist oral mucosa, normal dentition Neck: Trachea midline, no masses Respiratory: unlabored breathing, not using accessory muscles Abdomen: nontender, obese Pelvic: Refused Psych: normal mood, affect. Alert and oriented x 3. Vitals VITALS Vital Signs Date Time Temp Pulse Resp B/P (MAP) Pulse Ox O2 Delivery O2 Flow Rate FiO2 03/01/18 08:54 20 95 Room Air 03/01/18 08:53 82 155/66 03/01/18 07:00 97.7 97.7 Labs Labs Laboratory Tests Test 02/27/18 17:20 02/27/18 17:30 02/28/18 03:15 02/28/18 16:37 White Blood Count 14.5 x10^3/uL (4.0-11.0) 14.6 x10^3/uL (4.0-11.0) Red Blood Count 4.26 x10^6/uL (4.30-5.70) 4.14 x10^6/uL (4.30-5.70) Hemoglobin 12.8 g/dL (13.0-17.5) 12.3 g/dL (13.0-17.5) Hematocrit 37.8 % (39.0-53.0) 36.9 % (39.0-53.0) Mean Corpuscular Volume 89 fL (79-100) 89 fL (79-100) Mean Corpuscular Hemoglobin 30 pg (25-35) 30 pg (25-35) Mean Corpuscular Hemoglobin Concent 34 g/dL (31-37) 33 g/dL (31-37) Red Cell Distribution Width 14.5 % (11.5-14.5) 14.7 % (11.5-14.5) Platelet Count 183 x10^3/uL (140-400) 195 x10^3/uL (140-400) Neutrophils (%) (Auto) 84 % (31-73) 84 % (31-73) Lymphocytes (%) (Auto) 7 % (24-48) 7 % (24-48) Monocytes (%) (Auto) 7 % (0-9) 8 % (0-9) Eosinophils (%) (Auto) 1 % (0-3) 1 % (0-3) Basophils (%) (Auto) 0 % (0-3) 0 % (0-3) Neutrophils # (Auto) 12.2 x10^3uL (1.8-7.7) 12.3 x10^3uL (1.8-7.7) Lymphocytes # (Auto) 1.1 x10^3/uL (1.0-4.8) 1.0 x10^3/uL (1.0-4.8) Monocytes # (Auto) 1.1 x10^3/uL (0.0-1.1) 1.2 x10^3/uL (0.0-1.1) Eosinophils # (Auto) 0.1 x10^3/uL (0.0-0.7) 0.1 x10^3/uL (0.0-0.7) Basophils # (Auto) 0.0 x10^3/uL (0.0-0.2) 0.0 x10^3/uL (0.0-0.2) Prothrombin Time 15.4 SEC (11.7-14.0) Prothromb Time International Ratio 1.3 (0.8-1.1) Sodium Level 130 mmol/L (136-145) 130 mmol/L (136-145) Potassium Level 3.1 mmol/L (3.5-5.1) 4.1 mmol/L (3.5-5.1) Chloride Level 98 mmol/L (98-107) 100 mmol/L (98-107) Carbon Dioxide Level 26 mmol/L (21-32) 23 mmol/L (21-32) Anion Gap 6 (6-14) 7 (6-14) Blood Urea Nitrogen 16 mg/dL (8-26) 17 mg/dL (8-26) Creatinine 1.1 mg/dL (0.7-1.3) 1.2 mg/dL (0.7-1.3) Estimated GFR (Cockcroft-Gault) 64.7 58.6 Glucose Level 86 mg/dL (70-99) 239 mg/dL (70-99) Calcium Level 8.5 mg/dL (8.5-10.1) 8.4 mg/dL (8.5-10.1) Total Bilirubin 1.4 mg/dL (0.2-1.0) Direct Bilirubin 0.9 mg/dL (0.0-0.2) Aspartate Amino Transf (AST/SGOT) 25 U/L (15-37) Alanine Aminotransferase (ALT/SGPT) 29 U/L (16-63) Alkaline Phosphatase 99 U/L (46-116) Total Protein 6.4 g/dL (6.4-8.2) Albumin 2.2 g/dL (3.4-5.0) Lipase 150 U/L (73-393) 169 U/L (73-393) Magnesium Level 1.4 mg/dL (1.8-2.4) Hemoglobin A1c 6.1 % (4.8-5.6) Triglycerides Level 64 mg/dL (0-150) Cholesterol Level 88 mg/dL (0-200) LDL Cholesterol, Calculated 61 mg/dL (0-100) VLDL Cholesterol, Calculated 13 mg/dL (0-40) Non-HDL Cholesterol Calculated 74 mg/dL (0-129) HDL Cholesterol 14 mg/dL (40-60) Cholesterol/HDL Ratio 6.3 Glucose (Fingerstick) 123 mg/dL (70-99) Test 02/28/18 20:51 03/01/18 07:38 Glucose (Fingerstick) 137 mg/dL (70-99) 170 mg/dL (70-99) Laboratory Tests Test 02/28/18 16:37 02/28/18 20:51 03/01/18 07:38 Glucose (Fingerstick) 123 mg/dL (70-99) 137 mg/dL (70-99) 170 mg/dL (70-99) Images Images CT ABD/ PELVIS IMPRESSION: 1. Acute pancreatitis with slight interval worsening of the peripancreatic inflammation. 2. Left renal cysts and nonobstructing intrarenal calculi. 3. Medium density right renal nodule which is probably a complicated cyst. Sonographic evaluation is suggested. Assessment/Plan Assessment/Plan Complicated cyst on CT with no known history of kidney cancer-Will get Renal US to further evaluate Pelvic Exam/ERA-Refused, stating he recently had one by his PCP. No LUTS or urinary symptoms Dr. Long, supervising to round on patient tomorrow. ALYSON LONG MD 03/02/18 1202: UROLOGY CONSULT Assessment/Plan Assessment/Plan Patient was discharged prior to my exam. Records and images reviewed. Incidental finding of bilateral cystic renal masses. Left appear simple. 1.5 cm right is likely a hyperdense cyst as there is no contrast enhancement (per radiologist). Will follow with 6 mo clinic visit and repeat renal ultrasound. CONCEPCIÓN ASHLEY APRN Mar 01, 2018 09:13 ALYSON LONG MD Mar 02, 2018 12:02
--- NOTE | 2018-03-01 09:56 | PDOC ---
PROGRESS NOTES Chief Complaint Chief Complaint No pancreatitis, or at least has resolved-lipase now normal Hyponatremia in the background of Bumex use at home Obesity, BMI 35 Complicated renal cyst Diabetes type 2 with hemoglobin A1c 6.1 Abdominal pain, with black stool-transient, seems to have resolved-was taking indomethacin as home meds History of Present Illness History of Present Illness Is in the shower Then I did attempt to see today, was dressing up, wanted me to come back Lipase now normal Blood sugars 170s WBC 14 Potassium 4.1, on K containing IVF Plan: Urology consulted for the complicated renal cysts-await their rounds Stop K containing IVF as potassium is already 4.1 I did reconcile home meds including Bumex, but I did hold off on indomethacin given reports of transient black stool on H and P. Vitals Vitals Vital Signs Date Time Temp Pulse Resp B/P (MAP) Pulse Ox O2 Delivery O2 Flow Rate FiO2 03/01/18 08:54 20 95 Room Air 03/01/18 08:53 82 155/66 03/01/18 07:00 97.7 97.7 Physical Exam Physical Exam Physical Exam Physical Exam GEN.: MILD apparent distress. Alert and oriented. HEENT: Head is normocephalic, atraumatic NECK: Supple. LUNGS: Clear to auscultation. HEART: RRR, S1, S2 present. Peripheral pulses intact ABDOMEN: Soft, hypoactive bowel sounds. distended abd, epigastric mild tenderness. EXTREMITIES: Without any cyanosis. NEUROLOGIC: Normal speech, normal tone PSYCHIATRIC: Normal affect, normal mood. SKIN: No ulcerations General: Alert, Oriented X3, Cooperative, mild distress Heart: Regular rate, No murmurs Lungs: Clear Extremities: No clubbing, No cyanosis, No edema Labs LABS Laboratory Tests Test 02/28/18 16:37 02/28/18 20:51 03/01/18 07:38 Glucose (Fingerstick) 123 mg/dL (70-99) 137 mg/dL (70-99) 170 mg/dL (70-99) Review of Systems Review of Systems A 14 point ROS was completed with the following noted as positive: Other systems reviewed and negative. \CONSTITUTIONAL: No fever or chills EYES: No recent changes SKIN: No rash or itching CARDIOVASCULAR: No chest pain, syncope, palpitations, or edema RESPIRATORY: No SOB or cough GASTROINTESTINAL: No nausea, vomiting or abdominal pain NEUROLOGICAL: No headaches or weakness ENDOCRINE: No cold or heat intolerance GENITOURINARY: No urgency or frequency of urination MUSCULOSKELETAL: No back pain or joint pain LYMPHATICS: No enlarged lymph nodes PSYCHIATRIC: No anxiety or depression Comment Review of Relevant I have reviewed the following items dc (where applicable) has been applied. Labs Laboratory Tests Test 02/27/18 17:20 02/27/18 17:30 02/28/18 03:15 02/28/18 16:37 White Blood Count 14.5 x10^3/uL (4.0-11.0) 14.6 x10^3/uL (4.0-11.0) Red Blood Count 4.26 x10^6/uL (4.30-5.70) 4.14 x10^6/uL (4.30-5.70) Hemoglobin 12.8 g/dL (13.0-17.5) 12.3 g/dL (13.0-17.5) Hematocrit 37.8 % (39.0-53.0) 36.9 % (39.0-53.0) Mean Corpuscular Volume 89 fL (79-100) 89 fL (79-100) Mean Corpuscular Hemoglobin 30 pg (25-35) 30 pg (25-35) Mean Corpuscular Hemoglobin Concent 34 g/dL (31-37) 33 g/dL (31-37) Red Cell Distribution Width 14.5 % (11.5-14.5) 14.7 % (11.5-14.5) Platelet Count 183 x10^3/uL (140-400) 195 x10^3/uL (140-400) Neutrophils (%) (Auto) 84 % (31-73) 84 % (31-73) Lymphocytes (%) (Auto) 7 % (24-48) 7 % (24-48) Monocytes (%) (Auto) 7 % (0-9) 8 % (0-9) Eosinophils (%) (Auto) 1 % (0-3) 1 % (0-3) Basophils (%) (Auto) 0 % (0-3) 0 % (0-3) Neutrophils # (Auto) 12.2 x10^3uL (1.8-7.7) 12.3 x10^3uL (1.8-7.7) Lymphocytes # (Auto) 1.1 x10^3/uL (1.0-4.8) 1.0 x10^3/uL (1.0-4.8) Monocytes # (Auto) 1.1 x10^3/uL (0.0-1.1) 1.2 x10^3/uL (0.0-1.1) Eosinophils # (Auto) 0.1 x10^3/uL (0.0-0.7) 0.1 x10^3/uL (0.0-0.7) Basophils # (Auto) 0.0 x10^3/uL (0.0-0.2) 0.0 x10^3/uL (0.0-0.2) Prothrombin Time 15.4 SEC (11.7-14.0) Prothromb Time International Ratio 1.3 (0.8-1.1) Sodium Level 130 mmol/L (136-145) 130 mmol/L (136-145) Potassium Level 3.1 mmol/L (3.5-5.1) 4.1 mmol/L (3.5-5.1) Chloride Level 98 mmol/L (98-107) 100 mmol/L (98-107) Carbon Dioxide Level 26 mmol/L (21-32) 23 mmol/L (21-32) Anion Gap 6 (6-14) 7 (6-14) Blood Urea Nitrogen 16 mg/dL (8-26) 17 mg/dL (8-26) Creatinine 1.1 mg/dL (0.7-1.3) 1.2 mg/dL (0.7-1.3) Estimated GFR (Cockcroft-Gault) 64.7 58.6 Glucose Level 86 mg/dL (70-99) 239 mg/dL (70-99) Calcium Level 8.5 mg/dL (8.5-10.1) 8.4 mg/dL (8.5-10.1) Total Bilirubin 1.4 mg/dL (0.2-1.0) Direct Bilirubin 0.9 mg/dL (0.0-0.2) Aspartate Amino Transf (AST/SGOT) 25 U/L (15-37) Alanine Aminotransferase (ALT/SGPT) 29 U/L (16-63) Alkaline Phosphatase 99 U/L (46-116) Total Protein 6.4 g/dL (6.4-8.2) Albumin 2.2 g/dL (3.4-5.0) Lipase 150 U/L (73-393) 169 U/L (73-393) Magnesium Level 1.4 mg/dL (1.8-2.4) Hemoglobin A1c 6.1 % (4.8-5.6) Triglycerides Level 64 mg/dL (0-150) Cholesterol Level 88 mg/dL (0-200) LDL Cholesterol, Calculated 61 mg/dL (0-100) VLDL Cholesterol, Calculated 13 mg/dL (0-40) Non-HDL Cholesterol Calculated 74 mg/dL (0-129) HDL Cholesterol 14 mg/dL (40-60) Cholesterol/HDL Ratio 6.3 Glucose (Fingerstick) 123 mg/dL (70-99) Test 02/28/18 20:51 03/01/18 07:38 Glucose (Fingerstick) 137 mg/dL (70-99) 170 mg/dL (70-99) Laboratory Tests Test 02/28/18 16:37 02/28/18 20:51 03/01/18 07:38 Glucose (Fingerstick) 123 mg/dL (70-99) 137 mg/dL (70-99) 170 mg/dL (70-99) Medications Current Medications Acetaminophen (Tylenol) 650 mg PRN Q6HRS PRN PO FEVER/HEADACHE; Start 02/27/18 at 17:00 Ondansetron HCl (Zofran) 4 mg PRN Q6HRS PRN IV NAUSEA/VOMITING 1ST CHOICE; Start 02/27/18 at 17:00 Morphine Sulfate (Morphine Sulfate) 2 mg PRN Q2HR PRN IV MODERATE TO SEVERE PAIN; Start 02/27/18 at 17:00 Tramadol HCl (Ultram) 50 mg PRN Q6HRS PRN PO MILD TO MODERATE PAIN Last administered on 03/01/18at 08:54; Start 02/27/18 at 17:00 Docusate Sodium (Colace) 100 mg PRN DAILY PRN PO CONSTIPATION; Start 02/27/18 at 17:00 Allopurinol (Zyloprim) 300 mg DAILY PO Last administered on 02/28/18at 13:30; Start 02/27/18 at 18:30; Stop 02/28/18 at 14:58; Status DC Metoprolol Succinate (Toprol Xl) 100 mg DAILY PO Last administered on 08:53; Start 02/27/18 at 18:30 Diltiazem HCl (Cardizem 24hr Cd) 180 mg DAILY PO Last administered on 08:53; Start 02/27/18 at 18:30 Non-Formulary Medication (Omeprazole ) 1 cap BID PO ; Start 02/27/18 at 21:00; Status UNV Potassium Chloride/Dextrose/ Sod Cl 1,000 ml @ 100 mls/hr Q10H IV Last administered on 02/28/18 21:24; Start 02/27/18 at 18:00; Stop 03/01/18 at 08:43 ; Status DC Levofloxacin/ Dextrose 100 ml @ 100 mls/hr Q24H IV Last administered on 11:56; Start 02/28/18 at 11:00 Metronidazole 100 ml @ 100 mls/hr Q12HR IV Last administered on 03/01/18 08: 49; Start 02/27/18 at 21:00 Fentanyl Citrate (Fentanyl 2ml Vial) 50 mcg PRN Q2HR PRN IV PAIN MODERATE Last administered on 02/28/18at 22:58; Start 02/27/18 at 17:30 Pantoprazole Sodium (PROTONIX VIAL for IV PUSH) 40 mg DAILYAC IVP ; Start at 18:30; Stop 02/27/18 at 18:30; Status DC Enoxaparin Sodium (Lovenox 40mg Syringe) 40 mg QHS SQ Last administered on 02/28at 21:30; Start 02/27/18 at 21:00 Diphenhydramine HCl (Benadryl) 25 mg PRN Q6HRS PRN PO ITCHING Last administered on 02/28/18at 18:21; Start 02/27/18 at 17:45 Pharmacy Consult (C.diff Med Screen By Rx) 1 each 1X ONCE [facility] ; Start 02/27/18 at 17:45; Stop 02/27/18 at 17:51; Status DC Pantoprazole Sodium (PROTONIX VIAL for IV PUSH) 40 mg DAILYAC IVP Last administered on 03/01/18at 08:55; Start 02/28/18 at 07:30 Lactobacillus Rhamnosus (Culturelle) 1 cap BID PO Last administered on at 08:53; Start 02/27/18 at 21:00 Iohexol (Omnipaque 300 Mg/ml) 75 ml 1X ONCE IV Last administered on 02/27/18at 18:45; Start 02/27/18 at 18:45; Stop 02/27/18 at 18:54; Status DC Iohexol (Omnipaque 240 Mg/ml) 30 ml 1X ONCE PO Last administered on 02/27/18at 18:45; Start 02/27/18 at 18:45; Stop 02/27/18 at 18:54; Status DC Potassium Chloride (Klor-Con) 40 meq 1X ONCE PO Last administered on at 21:09; Start 02/27/18 at 21:00; Stop 02/27/18 at 21:01; Status DC Magnesium Sulfate 50 ml @ 25 mls/hr 1X ONCE IV Last administered on 02/27/18at 21:14; Start 02/27/18 at 21:00; Stop 02/27/18 at 22:59; Status DC Simethicone (Gas-X) 80 mg PRN Q6HRS PRN PO GAS / BLOATING Last administered on 02/28/18at 21:45; Start 02/28/18 at 21:45 Oxycodone/ Acetaminophen (Percocet 5/325) 1 tab PRN Q4HRS PRN PO SEVERE PAIN; Start 03/01/18 at 08:45 Bumetanide (Bumex) 1 mg DAILY PO ; Start 03/01/18 at 09:30 Non-Formulary Medication (Indomethacin ) 1 cap BID PO ; Start 03/01/18 at 09:00 ; Stop 03/01/18 at 09:00; Status DC Metolazone (Zaroxolyn) 5 mg DAILY PO ; Start 03/01/18 at 09:30 Active Scripts Active Reported Omeprazole 20 Mg Capsule.dr 1 Cap PO BID Metoprolol Succinate ( Xl ) (Metoprolol Succinate) 100 Mg Tab.er.24h 1 Tab PO DAILY Metolazone 5 Mg Tablet 5 Mg PO DAILY Indomethacin 50 Mg Capsule 1 Cap PO BID Cardizem Cd (Diltiazem Hcl) 180 Mg Cap.er.24h 1 Cap PO DAILY Bumetanide 1 Mg Tablet 1 Tab PO DAILY Allopurinol 300 Mg Tablet 1 Tab PO DAILY Vitals/I & O Vital Sign - Last 24 Hours 02/28/18 02/28/18 02/28/18 02/28/18 11:00 15:00 19:00 20:00 Temp 98.3 97.4 98.1 98.3 97.4 98.1 Pulse 73 67 72 Resp 18 18 18 B/P (MAP) 151/63 (92) 139/57 (84) 145/52 (83) Pulse Ox 93 95 94 O2 Delivery Room Air Room Air Room Air Room Air 02/28/18 02/28/18 02/28/18 03/01/18 22:58 23:00 23:28 03:00 Temp 98.1 98.0 98.1 98.0 Pulse 71 69 Resp 20 18 B/P (MAP) 126/56 (79) 138/56 (83) Pulse Ox 91 93 O2 Delivery Room Air Room Air Room Air Room Air 03/01/18 03/01/18 03/01/18 03/01/18 07:00 08:53 08:53 08:54 Temp 97.7 97.7 Pulse 82 82 82 Resp 18 20 B/P (MAP) 155/66 (95) 155/66 155/66 Pulse Ox 95 95 O2 Delivery Room Air Room Air Intake and Output 02/28/18 02/28/18 03/01/18 15:00 23:00 07:00 Intake Total 760 ml Balance 760 ml CONNIE PATTON MD Mar 01, 2018 09:56
[2018-03-01] MEDS: BUMETANIDE 1 MG TABLET. PO SCH (10:55)
[2018-03-01] MEDS: metOLazone 2.5 MG TABLET PO SCH (10:56)
[2018-03-01 11:00] VITALS: BP 145/58
[2018-03-01] MEDS: SIMETHICONE 80 MG TAB.CHEW PO PRN (11:06)
[2018-03-01 11:20] LABS: BASO % 0 % (0-3); EOS # 0.2 x10^3/uL (0.0-0.7); EOS % 1 % (0-3); HEMATOCRIT 36.2 % (39.0-53.0); HEMOGLOBIN 12.2 g/dL (13.0-17.5); LYMPH # 0.8 x10^3/uL (1.0-4.8); LYMPH % 6 % (24-48); MEAN CORPUSCULAR HEMOGLOBIN 30 pg (25-35); MEAN CORPUSCULAR HGB CONC 34 g/dL (31-37); MEAN CORPUSCULAR VOLUME 89 fL (79-100); MONO # 0.7 x10^3/uL (0.0-1.1); MONO % 6 % (0-9); NEUT # 11.6 x10^3uL (1.8-7.7); NEUT % 87 % (31-73); PLATELET COUNT 211 x10^3/uL (140-400); RED BLOOD COUNT 4.07 x10^6/uL (4.30-5.70); RED CELL DISTRIBUTION WIDTH 14.6 % (11.5-14.5); WHITE BLOOD COUNT 13.4 x10^3/uL (4.0-11.0)
--- NOTE | 2018-03-01 11:29 | RAD ---
Renal ultrasound, 03/01/2018: HISTORY: Renal nodule on CT The right kidney measures 12.0 cm in length while the left kidney measures 13.8 cm. There is no evidence of hydronephrosis. Bilateral renal cysts are noted. The largest of these on the left lies in the lower pole and measures 4 cm. The largest of these on the right arises from the lower pole and measures 1.5 cm. This right lower pole lesion probably corresponds to the nodule seen on the recent CT study. There are low level internal echoes. No internal color flow is seen. This is probably a complicated cyst. A heterogeneous solid nodule cannot be entirely excluded. Small left intrarenal calculi seen on the recent CT study were not visualized sonographically, likely due to technical factors including the patient's size. The bladder is collapsed and not adequately delineated. IMPRESSION: 1. Left renal cysts. 2. Probable complicated cyst in the lower pole of the right kidney. Electronically signed by: Rosales Craig MD (03/01/2018 11:26 AM) [facility]
[2018-03-01 11:38] LABS: ALBUMIN 2.1 g/dL (3.4-5.0); ALBUMIN/GLOBULIN RATIO 0.5 (1.0-1.7); CALCIUM 8.9 mg/dL (8.5-10.1); CREATININE 1.2 mg/dL (0.7-1.3); GFR 58.6; POTASSIUM 3.4 mmol/L (3.5-5.1); TOTAL BILIRUBIN 0.8 mg/dL (0.2-1.0); TOTAL PROTEIN 6.2 g/dL (6.4-8.2)
--- NOTE | 2018-03-01 12:06 | PDOC ---
Subjective: Subjective: Tolerating regular diet. Doesn't like IVF - has to urinate often, thinks making bloating and breathing worse. Denies pain, n/v. Stooled a little this morning. Scared to pass gas w/o being on the toilet. Took a Gas-X and feels rumbling. Wants to go home. Objective: Vital Signs: Vital Signs Date Time Temp Pulse Resp B/P (MAP) Pulse Ox O2 Delivery O2 Flow Rate FiO2 03/01/18 11:00 97.9 84 18 145/58 (87) 96 Room Air 97.9 Labs: Laboratory Tests Test 02/28/18 16:37 02/28/18 20:51 03/01/18 07:38 03/01/18 10:35 Glucose (Fingerstick) 123 mg/dL 137 mg/dL 170 mg/dL White Blood Count 13.4 x10^3/uL Red Blood Count 4.07 x10^6/uL Hemoglobin 12.2 g/dL Hematocrit 36.2 % Mean Corpuscular Volume 89 fL Mean Corpuscular Hemoglobin 30 pg Mean Corpuscular Hemoglobin Concent 34 g/dL Red Cell Distribution Width 14.6 % Platelet Count 211 x10^3/uL Neutrophils (%) (Auto) 87 % Lymphocytes (%) (Auto) 6 % Monocytes (%) (Auto) 6 % Eosinophils (%) (Auto) 1 % Basophils (%) (Auto) 0 % Neutrophils # (Auto) 11.6 x10^3uL Lymphocytes # (Auto) 0.8 x10^3/uL Monocytes # (Auto) 0.7 x10^3/uL Eosinophils # (Auto) 0.2 x10^3/uL Basophils # (Auto) 0.0 x10^3/uL Platelet Estimate Pending Sodium Level 133 mmol/L Potassium Level 3.4 mmol/L Chloride Level 101 mmol/L Carbon Dioxide Level 27 mmol/L Anion Gap 5 Blood Urea Nitrogen 17 mg/dL Creatinine 1.2 mg/dL Estimated GFR (Cockcroft-Gault) 58.6 BUN/Creatinine Ratio 14 Glucose Level 190 mg/dL Calcium Level 8.9 mg/dL Total Bilirubin 0.8 mg/dL Aspartate Amino Transf (AST/SGOT) 17 U/L Alanine Aminotransferase (ALT/SGPT) 21 U/L Alkaline Phosphatase 93 U/L Total Protein 6.2 g/dL Albumin 2.1 g/dL Albumin/Globulin Ratio 0.5 Amylase Level 52 U/L Lipase 206 U/L Imaging: Renal US IMPRESSION: 1. Left renal cysts. 2. Probable complicated cyst in the lower pole of the right kidney. PE: GEN: NAD LUNGS: diminished HEART: RRR ABD: some distention, BS+ but quiet, non-tender NEURO/PSYCH: A & O 3 A/P: Pancreatitis - unclear etiology -leukocytosis improved, still on IV atbx -tolerating regular diet -feels bloated/gassy -IgG4 and CA19-9 pending GERD - remain on IV PPI HTN, renal cysts -- Improved from GI standpoint - look to DC? Follow-up re: pending labs. Change to PO PPI - would continue on DC. Defer IVF management to primary. JAIDA BUTCHER Mar 01, 2018 12:06
[2018-03-01 12:56] LABS: % BANDS 12 % (0-9); % BASOS 1 % (0-3); % EOS 2 % (0-5); % LYMPHS 4 % (24-48); % MONOS 3 % (0-10); % SEGS 78 % (35-66)
[2018-03-01 12:57] LABS: PLT ESTIMATE ADEQUATE (ADEQUATE)
[2018-03-01 15:00] VITALS: BP 145/64
[2018-03-01 19:00] VITALS: BP 151/63
[2018-03-01] MEDS: ENOXAPARIN 40 MG/0.4 ML SYRINGE. SQ SCH (21:00)
[2018-03-01 22:54] VITALS: BP 134/71
[2018-03-01] MEDS: diphenhydrAMINE HCL 25 MG CAPSULE PO PRN (22:59)
[2018-03-02 02:44] VITALS: BP 136/78
[2018-03-02 07:00] VITALS: BP 164/77
[2018-03-02] MEDS ORDERED: PANTOPRAZOLE 40 MG TABLET.DR. PO SCH (07:30)
[2018-03-02 09:23] VITALS: BP 164/77
[2018-03-02] MEDS: metOLazone 2.5 MG TABLET PO SCH (09:23)
[2018-03-02] MEDS: BUMETANIDE 1 MG TABLET. PO SCH (09:23)
[2018-03-02] MEDS: LACTOBACILLUS RHAMNOSUS GG 1 CAPSULE. PO SCH (09:23)
[2018-03-02] MEDS: METOPROLOL SUCC 24HR ER 100 MG TAB.ER.24H. PO SCH (09:23)
--- NOTE | 2018-03-02 09:50 | PDOC3 ---
Discharge Summary Visit Information Date of Admission: Feb 27, 2018 Date of Discharge: Mar 02, 2018 Admitting Diagnosis Comment: Pancreatitis - unclear etiology -leukocytosis improved, still on IV atbx -tolerating regular diet -feels bloated/gassy -IgG4 and CA19-9 pending Complex renal cyst - incidental finding Brief Hospital Course Allergies Allergies Coded Allergies Type Severity Reaction Last Updated Verified amoxicillin Allergy Intermediate 03/01/18 Yes heparin Allergy Intermediate 03/01/18 Yes lisinopril Allergy Intermediate 03/01/18 Yes piperacillin Allergy Intermediate 03/01/18 Yes tazobactam Allergy Intermediate 03/01/18 Yes Vital Signs Vital Signs Date Time Temp Pulse Resp B/P (MAP) Pulse Ox O2 Delivery O2 Flow Rate FiO2 03/02/18 09:23 72 164/77 03/02/18 08:00 Room Air 03/02/18 07:00 98.3 18 94 98.3 Lab Results Laboratory Tests Test 02/28/18 16:37 02/28/18 20:51 03/01/18 07:38 03/01/18 10:35 Glucose (Fingerstick) 123 mg/dL (70-99) 137 mg/dL (70-99) 170 mg/dL (70-99) White Blood Count 13.4 x10^3/uL (4.0-11.0) Red Blood Count 4.07 x10^6/uL (4.30-5.70) Hemoglobin 12.2 g/dL (13.0-17.5) Hematocrit 36.2 % (39.0-53.0) Mean Corpuscular Volume 89 fL (79-100) Mean Corpuscular Hemoglobin 30 pg (25-35) Mean Corpuscular Hemoglobin Concent 34 g/dL (31-37) Red Cell Distribution Width 14.6 % (11.5-14.5) Platelet Count 211 x10^3/uL (140-400) Neutrophils (%) (Auto) 87 % (31-73) Lymphocytes (%) (Auto) 6 % (24-48) Monocytes (%) (Auto) 6 % (0-9) Eosinophils (%) (Auto) 1 % (0-3) Basophils (%) (Auto) 0 % (0-3) Neutrophils # (Auto) 11.6 x10^3uL (1.8-7.7) Lymphocytes # (Auto) 0.8 x10^3/uL (1.0-4.8) Monocytes # (Auto) 0.7 x10^3/uL (0.0-1.1) Eosinophils # (Auto) 0.2 x10^3/uL (0.0-0.7) Basophils # (Auto) 0.0 x10^3/uL (0.0-0.2) Segmented Neutrophils % 78 % (35-66) Band Neutrophils % 12 % (0-9) Lymphocytes % 4 % (24-48) Monocytes % 3 % (0-10) Eosinophils % 2 % (0-5) Basophils % 1 % (0-3) Platelet Estimate Adequate (ADEQUATE) Anisocytosis Sodium Level 133 mmol/L (136-145) Potassium Level 3.4 mmol/L (3.5-5.1) Chloride Level 101 mmol/L (98-107) Carbon Dioxide Level 27 mmol/L (21-32) Anion Gap 5 (6-14) Blood Urea Nitrogen 17 mg/dL (8-26) Creatinine 1.2 mg/dL (0.7-1.3) Estimated GFR (Cockcroft-Gault) 58.6 BUN/Creatinine Ratio 14 (6-20) Glucose Level 190 mg/dL (70-99) Calcium Level 8.9 mg/dL (8.5-10.1) Total Bilirubin 0.8 mg/dL (0.2-1.0) Aspartate Amino Transf (AST/SGOT) 17 U/L (15-37) Alanine Aminotransferase (ALT/SGPT) 21 U/L (16-63) Alkaline Phosphatase 93 U/L (46-116) Total Protein 6.2 g/dL (6.4-8.2) Albumin 2.1 g/dL (3.4-5.0) Albumin/Globulin Ratio 0.5 (1.0-1.7) Amylase Level 52 U/L (25-115) Lipase 206 U/L (73-393) Test 03/01/18 11:47 03/01/18 16:38 Glucose (Fingerstick) 152 mg/dL (70-99) 111 mg/dL (70-99) Laboratory Tests Test 03/01/18 10:35 03/01/18 11:47 03/01/18 16:38 White Blood Count 13.4 x10^3/uL (4.0-11.0) Red Blood Count 4.07 x10^6/uL (4.30-5.70) Hemoglobin 12.2 g/dL (13.0-17.5) Hematocrit 36.2 % (39.0-53.0) Mean Corpuscular Volume 89 fL (79-100) Mean Corpuscular Hemoglobin 30 pg (25-35) Mean Corpuscular Hemoglobin Concent 34 g/dL (31-37) Red Cell Distribution Width 14.6 % (11.5-14.5) Platelet Count 211 x10^3/uL (140-400) Neutrophils (%) (Auto) 87 % (31-73) Lymphocytes (%) (Auto) 6 % (24-48) Monocytes (%) (Auto) 6 % (0-9) Eosinophils (%) (Auto) 1 % (0-3) Basophils (%) (Auto) 0 % (0-3) Neutrophils # (Auto) 11.6 x10^3uL (1.8-7.7) Lymphocytes # (Auto) 0.8 x10^3/uL (1.0-4.8) Monocytes # (Auto) 0.7 x10^3/uL (0.0-1.1) Eosinophils # (Auto) 0.2 x10^3/uL (0.0-0.7) Basophils # (Auto) 0.0 x10^3/uL (0.0-0.2) Segmented Neutrophils % 78 % (35-66) Band Neutrophils % 12 % (0-9) Lymphocytes % 4 % (24-48) Monocytes % 3 % (0-10) Eosinophils % 2 % (0-5) Basophils % 1 % (0-3) Platelet Estimate Adequate (ADEQUATE) Anisocytosis Sodium Level 133 mmol/L (136-145) Potassium Level 3.4 mmol/L (3.5-5.1) Chloride Level 101 mmol/L (98-107) Carbon Dioxide Level 27 mmol/L (21-32) Anion Gap 5 (6-14) Blood Urea Nitrogen 17 mg/dL (8-26) Creatinine 1.2 mg/dL (0.7-1.3) Estimated GFR (Cockcroft-Gault) 58.6 BUN/Creatinine Ratio 14 (6-20) Glucose Level 190 mg/dL (70-99) Calcium Level 8.9 mg/dL (8.5-10.1) Total Bilirubin 0.8 mg/dL (0.2-1.0) Aspartate Amino Transf (AST/SGOT) 17 U/L (15-37) Alanine Aminotransferase (ALT/SGPT) 21 U/L (16-63) Alkaline Phosphatase 93 U/L (46-116) Total Protein 6.2 g/dL (6.4-8.2) Albumin 2.1 g/dL (3.4-5.0) Albumin/Globulin Ratio 0.5 (1.0-1.7) Amylase Level 52 U/L (25-115) Lipase 206 U/L (73-393) Glucose (Fingerstick) 152 mg/dL (70-99) 111 mg/dL (70-99) Brief Hospital Course Mr. Molina is a 77 old white male who lives at home with , admitted for initial thoughts of pancreatitis of unclear etiology. But after 24-48 hrs. of nothing by mouth, lipase is down to normal and tolerating diet with no pain. On CAT scan incidental finding of complicated/r complex renal cyst hence urology consulted. Patient denies any flank pains or gross hematuria. Urology mid-level provider has seen. Patient is wanting to go home. Has not been seen by urology specialist yet. Most likely might be able to DC and is follow-up as outpatient. Was getting Levaquin and Flagyl empirically mostly for GI related issues? No UA , but did have a white count WBC 13 with no fevers. GI also recommends shifting to Protonix oral on discharge. I have left Rx for Levaquin and Protonix on chart. Urology hopefully to see the patient before he leaves Discussed with and RN at bedside Consults performed GI, urology Procedures performed none just CAT scan Discharge Information Condition at Discharge: Improved, Stable Disposition/Orders: D/C to Home Scheduled Allopurinol (Allopurinol) 300 Mg Tablet, 1 TAB PO DAILY, #30 Ref 5 (Reported) Entered as Reported by: DILLAN NIELSEN on 02/27/18 1656 Last Taken: Unknown Dose on Unknown Date & Time Last Action: Continued on 02/27/181732 by GORDON SOUZA MD Bumetanide (Bumetanide) 1 Mg Tablet, 1 TAB PO DAILY, #90 Ref 1 (Reported) Entered as Reported by: DILLAN NIELSEN on 02/27/181655 Last Taken: Unknown Dose on Unknown Date & Time Last Action: Continued on 03/01/18843 by CONNIE PATTON Diltiazem Hcl (Cardizem Cd) 180 Mg Cap.er.24h, 1 CAP PO DAILY, #90 Ref 1 ( Reported) Entered as Reported by: DILLAN NIELSEN on 02/27/181655 Last Taken: Unknown Dose on Unknown Date & Time Last Action: Converted on 02/27/181732 by GORDON SOUZA MD Indomethacin (Indomethacin) 50 Mg Capsule, 1 CAP PO BID, #30 Ref 1 (Reported) Entered as Reported by: DILLAN NIELSEN on 02/27/181655 Last Taken: Unknown Dose on Unknown Date & Time Last Action: Converted on 03/01/18843 by CONNIE PATTON Metolazone (Metolazone) 5 Mg Tablet, 5 MG PO DAILY, #30 Ref 0 (Reported) Entered as Reported by: DILLAN NIELSEN on 02/27/181655 Last Taken: Unknown Dose on Unknown Date & Time Last Action: Converted on 03/01/18843 by CONNIE PATTON Metoprolol Succinate (Metoprolol Succinate ( Xl )) 100 Mg Tab.er.24h, 1 TAB PO DAILY, #30 Ref 5 (Reported) Entered as Reported by: DILLAN NIELSEN on 02/27/181655 Last Taken: Unknown Dose on Unknown Date & Time Last Action: Continued on 02/27/181732 by GORDON SOUZA MD Omeprazole (Omeprazole) 20 Mg Capsule.dr, 1 CAP PO BID, #30 Ref 5 (Reported) Entered as Reported by: DILLAN NIELSEN on 02/27/181655 Last Taken: Unknown Dose on Unknown Date & Time Last Action: Converted on 02/27/181732 by MD POOJA WALSH CHERRIE Y MD Mar 02, 2018 09:50
[2018-03-05 00:39] LABS: IGG1 417 mg/dL (248-810); IGG2 343 mg/dL (130-555); IGG3 92 mg/dL (15-102); IGG4 60 mg/dL (2-96); TOTAL IGG 850 mg/dL (700-1600)
== END 2018-03-02 11:00 | disposition home or self-care (01) | DRG 438 ==
LOC: 5 SOUTH 16:41
PROVIDERS: ADMIT Internal Medicine; ATTEND Internal Medicine
DX: K85.90 Acute pancreatitis without necrosis or infection, unspecified (principal); R65.11 Systemic inflammatory response syndrome (SIRS) of non-infectious origin with acute organ dysfunction; E87.1 Hypo-osmolality and hyponatremia; E87.6 Hypokalemia; I10 Essential (primary) hypertension; K21.9 Gastro-esophageal reflux disease without esophagitis; Z96.653 Presence of artificial knee joint, bilateral; M10.9 Gout, unspecified; E66.01 Morbid (severe) obesity due to excess calories; N28.1 Cyst of kidney, acquired; N20.0 Calculus of kidney; E11.65 Type 2 diabetes mellitus with hyperglycemia; I65.23 Occlusion and stenosis of bilateral carotid arteries; Z90.49 Acquired absence of other specified parts of digestive tract; Z68.35 Body mass index [BMI] 35.0-35.9, adult; Z86.010 Personal history of colon polyps; Z88.0 Allergy status to penicillin; Z88.8 Allergy status to other drugs, medicaments and biological substances; D72.829 Elevated white blood cell count, unspecified
CPT/HCPCS: 36415; 71045; 74177; 76770; 80048; 80053; 80061; 80076; 82150; 82787; 82962; 83036; 83690; 83735; 85007; 85025; 85610; 86301; 87324; 87641; C9113; J1650; J1956; J3010; J3475; J3490; Q0163; Q9966; Q9967

== ENCOUNTER → 2021-07-07 | Outpatient (CLI) | payer MEDICARE ==
[~2021-07-07] MED LIST: ALLO300T PO; BUME1TAB3 PO; DILT180C2 PO; INDO50CA15 PO; METO-247 PO; METO5TAB4 PO; OMEP20CA16 PO
--- NOTE | 2021-07-07 18:49 | KCIC ---
EXAM: MRI left shoulder DATE: 07/07/2021 3:00 PM COMPARISON: None INDICATION: LEFT SHOULDER PAIN-ACUTE LEFT SHOULDER PAIN 7-8 DAYS AGO. TECHNIQUE: Multiplanar, multisequence MRI of the left shoulder was performed without contrast. FINDINGS: AC joint degenerative changes are seen with bulky inferior projecting osteophytes. Subacromial-subdel toid bursal edema, bursitis. There is a full-thickness, full width tear of the supraspinatus tendon and full-thickness, partial wi dth tear of the infraspinatus tendon measuring 2.5 cm in AP dimension. Tendinous retraction to the le kd of the AC joint. Full-thickness, near full width tear of the subscapularis tendon. Moderate fatty atrophy of the supraspinatus and subscapularis muscle bellies. Mild fatty atrophy of the infraspinat us muscle belly. Superior subluxation of the humeral head. Background of supraspinatus, infraspinatus and subscapularis tendinosis. There is medial dislocation of the long head biceps tendon. Glenohumeral joint osteoarthritis with inferior projecting osteophytes. Chondral effacement glenoid w ith subchondral cystic change, particularly posteriorly. Diffuse labral deformity likely degeneration . IMPRESSION: 1. Rotator cuff arthropathy with full-thickness, full width tear of the supraspinatus tendon, full-t hickness, partial width tear of the infraspinatus tendon and full-thickness, near full width tear of the subscapularis tendons. Severe left shoulder joint osteoarthritis. 2. Moderate fatty atrophy of the supraspinatus and subscapularis muscle bellies. Mild fatty atrophy of the infraspinatus muscle belly. 3. Severe AC joint osteoarthritis. Electronically signed by: Antonio Latham MD (07/07/2021 6:47 PM) [facility]
== END ==
LOC: KCIC MRI 14:19
DX: S43.002A Unspecified subluxation of left shoulder joint, initial encounter (principal); M75.122 Complete rotator cuff tear or rupture of left shoulder, not specified as traumatic; M19.012 Primary osteoarthritis, left shoulder; M75.52 Bursitis of left shoulder; M25.812 Other specified joint disorders, left shoulder; X58.XXXA Exposure to other specified factors, initial encounter; Y93.89 Activity, other specified; Y92.89 Other specified places as the place of occurrence of the external cause; Y99.8 Other external cause status
CPT/HCPCS: 73221